=== PATIENT | male | born 1940 | race Caucasian/White ===

== ENCOUNTER → 2019-07-03 | Outpatient (CLI) | payer MEDICARE ==
--- NOTE | 2019-07-04 11:57 | RAD ---
EXAM: Complete osseous survey. HISTORY: Multiple myeloma, bone pain worst at the hips. COMPARISON: None. FINDINGS: A complete osseous survey was obtained. Frontal and lateral views of the skull are obtained. There are no lytic lesions. The paranasal sinuses appear normally aerated. Surgical clips are seen in both temporal regions. Frontal and lateral views of the cervical spine are obtained. There are no clear lytic lesions. Anterior cervical discectomy and fusion changes from C5 through C7 appear solid. There is a mild levocurvature. Facet osteoarthritis appears moderate diffusely. Carotid atherosclerotic calcifications are noted. Frontal and lateral views of the thoracic spine are obtained. There are no clear lytic lesions or fractures. There is mild to moderate degenerative disc disease within the mid and upper thoracic spine. Alignment is maintained. Frontal and lateral views of the lumbar spine were obtained. There are vertebroplasty changes at a mild compression fracture at L1. There are no clear lytic lesions. There is slight grade 1 anterolisthesis at L4-5. Laminectomy changes are noted from L3 through L5. A frontal view of the chest is obtained. There are no clear lytic lesions. A left-sided pacemaker/defibrillator has its leads in the right atrium, right ventricle and a left cardiac vein. There are changes of coronary artery bypass grafting. The heart is mildly to moderately enlarged. Mild blunting the right costophrenic angle may reflect scarring rather than a small pleural effusion. There is no pneumothorax. Calcified mediastinal lymph nodes are likely secondary to old granulomatous disease. There are atherosclerotic calcifications of the aorta. Cholecystectomy clips are noted. A frontal view of the pelvis is obtained. There are no clear lytic lesions. The joint spaces of both hips are maintained. Frontal views of both arms and forearms are obtained. There are no discrete lytic lesions. 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 The left distal clavicle appears to been partially resected. Frontal views of both thighs and legs are obtained. There are no discrete lytic lesions. Bilateral total knee arthroplasties are noted. IMPRESSION: 1. No discrete lytic lesions are identified. There is moderate osteopenia, which can be a presentation of multiple myeloma. 2. Additional findings as above. Electronically signed by: Lizabeth Glez MD (07/04/2019 11:54 AM) [facility]
== END | disposition home or self-care (01) ==
LOC: RAD 16:42
PROVIDERS: ATTEND Internal Medicine Hematology & Oncology
DX: M85.89 Other specified disorders of bone density and structure, multiple sites (principal); D47.2 Monoclonal gammopathy; M51.34 Other intervertebral disc degeneration, thoracic region; I70.0 Atherosclerosis of aorta; M19.022 Primary osteoarthritis, left elbow; M19.021 Primary osteoarthritis, right elbow; I65.29 Occlusion and stenosis of unspecified carotid artery; Z90.49 Acquired absence of other specified parts of digestive tract; Z96.653 Presence of artificial knee joint, bilateral
CPT/HCPCS: 77075